=== PATIENT | female | born 1965 | race African-American/Black ===

== ENCOUNTER 2019-06-12 20:23 | Emergency (ER) | payer BC, OTHER ==
[~2019-06-12] VITALS: Ht 165.1 cm; Wt 97.5 kg
[~2019-06-12 20:23] MED LIST: AMBIEN 5 MG TABL5 M1 PO; CYCLOBENZAPRINE5 MG PO; IBUPROFEN 600600 M1 PO; MULTIVITAMINS1 EAC7 PO; NORCO 5-325 TA1 EACH PO; NORTHYX5 MG PO; PERCOCET 7.5-51 EACH PO; VITAMIN C500 M1 PO
[2019-06-12 20:53] LABS: ABSOLUTE NEUTROPHILS 2.9 thou/uL (1.4-8.2); BASOPHILS 1.6 % (0.0-2.0); EOSINOPHILS 4.1 % (0.0-3.0); HEMATOCRIT 44.2 % (37.0-47.0); HEMOGLOBIN 14.5 gm/dL (12.0-15.0); LYMPHOCYTES 35.4 % (24.0-44.0); MCH 29.8 pg (26.0-34.0); MCHC 32.9 g/dL (28.0-37.0); MCV 90.7 fL (80.0-100.0); MONOCYTES 7.5 % (1.0-8.0); PLATELET COUNT 227 thou/uL (150-400); POLYS 51.4 % (36.0-66.0); RBC 4.87 mil/uL (4.20-5.00); WBC 5.7 thou/uL (4.0-11.0)
[2019-06-12 21:10] LABS: ANION GAP 6 mmol/L (7-16); BUN 17 mg/dL (7-18); CALCIUM 9.3 mg/dL (8.5-10.1); CHLORIDE 103 mmol/L (98-107); CO2 29 mmol/L (21-32); GLUCOSE 93 mg/dL (74-106); POTASSIUM 3.4 mmol/L (3.5-5.1); SODIUM 138 mmol/L (136-145)
[2019-06-12 21:15] LABS: SGOT 23 U/L (15-37); SGPT 20 U/L (30-65); TOTAL BILIRUBIN 0.6 mg/dL (<0.1-1.0); TOTAL PROTEIN 8.1 g/dL (6.4-8.2); TROPONIN-I <0.06 ng/mL (<0.06)
[2019-06-12 23:38] VITALS: BP 108/58
--- NOTE | 2019-06-13 08:08 | EKG ---
[address] [employer] [place] [address] ELECTROCARDIOGRAM REPORT Name: ABBOTTVIKI Room #: [facility] Juan#: [id number] Admission: 06/12/19 Attend Phys: Discharge: 06/12/19 Date of : 69 Report #: [id number] THIS REPORT FOR: //name// [facility] ED Test Date: 2019-06-12 Test Time: 20:34:14 Pat Name: VIKI ABBOTT Department: Room: Gender: F Building Maintenance Technician: zainab : 1965 Requested By: Sydni Solares Order Number: [id number] MD: Brando Mcclellan Measurements Intervals [place] Rate: 71 P: 46 OK: 149 QRS: 25 QRSD: 88 T: 31 QT: 355 QTc: 386 Interpretive Statements Sinus rhythm Normal tracing No previous ECG available for comparison Electronically Signed On 06-13-2019 8:08:33 CDT by Brando Mcclellan [email or web address] <ELECTRONICALLY SIGNED> By: Brando Mcclellan MD, [facility] 06/13/19 0808 2034 33 Brando Mcclellan MD, FACC /EPI
== END 2019-06-12 23:38 | disposition home or self-care (01) ==
LOC: ER 20:23
PROVIDERS: Student in an Organized Health Care Education/Training Program
DX: I10 Essential (primary) hypertension (principal); E05.90 Thyrotoxicosis, unspecified without thyrotoxic crisis or storm